=== PATIENT | female | born 1950 | race Caucasian/White ===

== ENCOUNTER 2018-04-12 09:57 | Emergency (ER) | payer MEDICARE, MEDICAID ==
[~2018-04-12] VITALS: Ht 170.2 cm; Wt 75.3 kg
--- OUTSIDE RECORDS SUMMARY | 2018-04-12 10:03 | XMS REPORT | Continuity of Care Document ---
Author Author [facility] Organization [facility] Address Unknown Phone Unavailable Allergies Active Description Code Type Severity Reaction Onset Reported/Identified Relationship to Patient Clinical Status Yes No Known Allergies No Known Allergies Drug Allergy Unknown N/A 2016 Medications There is no data. Problems There is no data. Procedures There is no data. Results There is no data. Encounters ACCT No. Visit Date/Time Discharge Status Pt. Type Provider Facility Loc./Unit Complaint [id number] 04/04/2017 22:11:00 04/04/2017 22:49:00 DIS Emergency Diya PRINCE, Cody Gallardo [facility]
[2018-04-12] MEDS ORDERED: DIGO125T18 (10:20)
[2018-04-12] MEDS ORDERED: MECL-106 (10:20)
[2018-04-12] MEDS ORDERED: ATOR40TA70 (10:20)
[2018-04-12] MEDS ORDERED: FURO20TA4 (10:20)
[2018-04-12] MEDS ORDERED: TRAZ-190 (10:20)
[2018-04-12] MEDS ORDERED: TEMA15CA (10:20)
[2018-04-12] MEDS ORDERED: POTA10TA10 (10:20)
[2018-04-12] MEDS ORDERED: RISP1TAB3 (10:20)
[2018-04-12] MEDS ORDERED: METO5TAB6 (10:20)
[2018-04-12 10:39] LABS: BILIRUBIN,URINE NEGATIVE (NEGATIVE); CLARITY,URINE SLIGHTLY CLOUDY; COLOR,URINE YELLOW; GLUCOSE, URINE (UA) NEGATIVE (NEGATIVE); KETONES,URINE NEGATIVE (NEGATIVE); LEUKOCYTE ESTERASE ,URINE 3+ (NEGATIVE); NITRITE,URINE NEGATIVE (NEGATIVE); PH,URINE 5 (5-9); PROTEIN,URINE 1+ (NEGATIVE); UROBILINOGEN,URINE 1 MG/DL (NORMAL)
[2018-04-12 11:16] LABS: BACTERIA,URINE FEW /HPF; WBC,URINE 25-50 /HPF
[2018-04-12] MEDS ORDERED: LIDOCAINE 1% INJ 20 ML 20 ML VIAL ONE (11:28)
[2018-04-12] MEDS ORDERED: cefTRIAXone 1 GM/10 ML for IV (ROCEPHIN) ONE (11:28)
[2018-04-12] MEDS ORDERED: cefTRIAXone 1,000 MG/2.86 ml vial (IM ONLY) IM ONE (11:30)
--- NOTE | 2018-04-12 11:34 | ED General ---
General Chief Complaint: Dizziness/Syncope Stated Complaint: DIZZINESS Nursing Triage Note: ARRIVED VIA AMB TO ROOM 03. FROM OUT OF TOWN ET STATES SHE BECAME DIZZY APPX 30MINS [employer]. FAMILY STATES THE LAST TIME THIS HAPPENED SHE HAD A UTI. PT IS . Josh Sepsis Screen: No Definite Risk Source of Information: Patient, Family Exam Limitations: Physical Impairments History of Present Illness Date Seen by Provider: Apr 12, 2018 Time Seen by Provider: 11:15 Initial Comments Here with family from [place] with report of dizziness. Family states that patient usually has these symptoms when she has a urinary tract infection. She apparently has had some of this going on for the last week and had UA done by home health nurse on last week but has not heard any results. They're visiting other family members here and are returned [place] today. Patient is MR with dementia. No report of vomiting or diarrhea. No report of fever. Timing/Duration: 1 Hour Severity: Mild Associated Systoms: No Chest Pain, No Cough, No Fever/Chills, No Nausea/ Vomiting, No Shortness of Air; Other (dizziness) Allergies and Home Medications Allergies Coded Allergies: No Known Drug Allergies (Unverified , 04/12/18) Home Medications Cephalexin 500 Mg Tablet, 500 MG PO BID Prescribed by: WONG MISHRA on 04/12/18 1137 Patient Home Medication List Home Medication List Reviewed: Yes Review of Systems Review of Systems Constitutional: see HPI; No chills, No fever Respiratory: no symptoms reported Cardiovascular: no symptoms reported Genitourinary: see HPI; No pain Psychiatric/Neurological: See HPI, Other (dizziness) Past Ycutrpb-Cqwuos-Btgtvl Hx Past Med/Social Hx: Reviewed Nursing Past Med/Soc Hx Patient Social History Alcohol Use: Denies Use Recreational Drug Use: No Smoking Status: Never a Smoker Recent Foreign Travel: No Contact w/Someone Who Travel: No Recent Infectious Disease Expo: No Recent Hopitalizations: No Seasonal Allergies Seasonal Allergies: No Past Medical History Surgeries: Yes Breast, Ear Surgery, Orthopedic Respiratory: No Cardiac: Yes Hypertension Neurological: Yes (MR) Genitourinary: No Gastrointestinal: No Musculoskeletal: No Endocrine: No HEENT: No Psychosocial: No Integumentary: No Family Medical History Reviewed Nursing Family Hx Physical Exam Vital Signs Vital Signs - First Documented 04/12/18 10:04 Temp 97.9 Pulse 83 Resp 16 B/P (MAP) 170/104 (126) Pulse Ox 97 O2 Delivery Room Air Capillary Refill : Less Than 3 Seconds Height, Weight, BMI Height: 5'7.00" Weight: 166lbs. oz. 75.154481wj; BMI Method:Stated General Appearance: No Apparent Distress, WD/WN HEENT: PERRL/EOMI, Pharynx Normal Neck: Non Tender, Supple Respiratory: Lungs Clear, Normal Breath Sounds Gastrointestinal: Normal Bowel Sounds, No Organomegaly, No Pulsatile Mass, Non Tender, Soft Skin: Normal Color, Warm/Dry Progress/Results/Core Measures Suspected Sepsis Recent Fever Within 48 Hours: No Infection Criteria Present: None New/Unexplained Altered Menta: No Sepsis Screen: No Definite Risk SIRS Temperature:97.9 Pulse: 83 Respiratory Rate: 16 Blood Pressure 170 /104 Mean: 126 Results/Orders Lab Results Laboratory Tests Test 04/12/18 10:14 04/12/18 11:29 Range/Units Urine Color YELLOW Urine Clarity SLIGHTLY CLOUDY Urine pH 5 5-9 Urine Specific [place] 1.020 1.016-1.022 Urine Protein 1+ H NEGATIVE Urine Glucose (UA) NEGATIVE NEGATIVE Urine Ketones NEGATIVE NEGATIVE Urine Nitrite NEGATIVE NEGATIVE Urine Bilirubin NEGATIVE NEGATIVE Urine Urobilinogen 1 NORMAL MG/DL Urine Leukocyte Esterase 3+ H NEGATIVE Urine RBC (Auto) 1+ H NEGATIVE Urine RBC 2-5 H /HPF Urine WBC 25-50 H /HPF Urine Squamous Epithelial Cells 2-5 /HPF Urine Crystals NONE /LPF Urine Bacteria FEW H /HPF Urine Casts NONE /LPF Urine Mucus NEGATIVE /LPF Urine Culture Indicated YES Glucometer 182 H 70-110 MG/DL My Orders Orders - WONG MISHRA MD Ua Culture If Indicated (04/12/18 10:35) Urine Culture (04/12/18 10:14) Accucheck Stat ONCE (04/12/18 11:27) Ceftriaxone For Im Use (Rocephin For Im (04/12/18 11:30) Lidocaine 1% Inj 20 Ml (Xylocaine 1% Inj (04/12/18 11:28) Ceftriaxone For Iv Use (Rocephin For I (04/12/18 11:28) Medications Given in ED Current Medications Medications Dose Ordered Sig/Ned Route Start Time Stop Time Status Last Admin Dose Admin Ceftriaxone Sodium 1,000 mg ONCE ONCE IM 04/12/18 11:30 04/12/18 11:31 DC 04/12/18 11:35 1,000 MG Lidocaine HCl 20 ml STK-MED ONCE .ROUTE 04/12/18 11:28 04/12/18 11:33 DC 04/12/18 11:35 20 ML Vital Signs/I&O 04/12/18 10:04 Temp 97.9 Pulse 83 Resp 16 B/P (MAP) 170/104 (126) Pulse Ox 97 O2 Delivery Room Air Capillary Refill : Less Than 3 Seconds Blood Pressure Mean: 126 Progress Note : Progress Note Seen and evaluated. Fingerstick blood sugar shows 182. EKG done and UA ordered. No significant findings on EKG. UA is positive for urinary tract infection. Given patient's MR status and she is out of town we will go ahead and give first dose of IM antibiotic to ensure good coverage with prescription to follow. This is discussed with the patient's family members who agree. Discharged home with return precautions. Family verbalize understanding of instructions and agreement with plan. ECG Initial ECG Impression Date: Apr 12, 2018 Initial ECG Impression Time: 11:01 Initial ECG Rate: 78 Initial ECG Rhythm: Normal Sinus Comment Sinus rhythm with normal axis. No evidence of ST elevation HI. Flat T waves throughout. No previous available for comparison. Interpreted by me. Departure Impression Primary Impression: Urinary tract infection Qualified Codes: N30.00 - Acute cystitis without hematuria Disposition: HOME, SELF-CARE Condition: Improved Departure-Patient Inst. Decision time for Depature: 11:35 Referrals: NO,LOCAL PHYSICIAN (PCP/Family) Primary Care Physician Patient Instructions: Urinary Tract Infection, Adult (DC) Add. Discharge Instructions: All discharge instructions reviewed with patient and/or family. Voiced understanding. Take medications as directed. Encourage adequate amount of fluids. Follow-up with your Dr. in 2-3 days for recheck and further evaluation. Return for worse pain, fever, vomiting, weakness, breathing problems or other concerns as needed. Scripts Cephalexin (Cephalexin) 500 Mg Tablet 500 MG PO BID, #10 TAB 0 Refills Prov: WONG MISHRA MD 04/12/18 WONG MISHRA MD Apr 12, 2018 11:34
[2018-04-12] MEDS ORDERED: CEPH500T PO (11:37)
[2018-04-12 11:52] VITALS: BP 123/71
== END 2018-04-12 11:52 | disposition home or self-care (01) ==
LOC: ER 10:00
DX: N39.0 Urinary tract infection, site not specified (principal); F03.90 Unspecified dementia, unspecified severity, without behavioral disturbance, psychotic disturbance, mood disturbance, and anxiety; I10 Essential (primary) hypertension
CPT/HCPCS: 81000; 82962; 87088